=== PATIENT | female | born 1945 | race Asian ===

== ENCOUNTER → 2025-01-17 | Outpatient (CLI) | payer MEDICARE, BC, SELFPAY ==
[2025-01-24 06:29] LABS: Helicobacter pylori Ag, Stool* NOT DETECTED (NOT DETECTED)
== END | disposition home or self-care (01) ==
LOC: SLDO 11:27
PROVIDERS: PCP Internal Medicine; Referring Provider Internal Medicine; Visit Provider Internal Medicine
DX: K30 Functional dyspepsia (principal)
CPT/HCPCS: 87338

== ENCOUNTER → 2025-02-20 | Outpatient (CLI) | payer MEDICARE, BC, SELFPAY ==
--- NOTE | 2025-02-20 | XR_ITS ---
Examination: Foot, right, 3 views Technique: AP, oblique, lateral views foot, 3 views Date and time of exam: February 20, 2025 1204 hours INDICATIONS: Patient fell 2 days ago with injury to the foot, foot pain. FINDINGS: Severe osteopenia Intra-articular fracture off the base of the proximal phalanx first digit, the 4 mm fracture fragment does not show significant displacement Also 3 mm fracture intra-articular off the base of the proximal phalanx fourth digit and 4 mm intra-articular fracture off the base of the second digit proximal phalanx without displacement No dislocation IMPRESSION: Fractures off the bases of the first second and fourth proximal phalanges
--- NOTE | 2025-02-20 | XR_ITS ---
EXAMINATION: Ankle, right 3 views . Technique: Ankle AP, oblique, lateral 3 views Date and time of exam: February 20, 2025 1204 hours INDICATIONS: Patient fell 2 days ago with injury to the ankle, ankle pain. FINDINGS: Prominent osteopenia No acute ankle fracture. No dislocation IMPRESSION: No acute ankle fracture
== END | disposition home or self-care (01) ==
PROVIDERS: PCP Internal Medicine; Referring Provider Internal Medicine; Visit Provider Internal Medicine
DX: S99.911A Unspecified injury of right ankle, initial encounter (principal); S92.411A Displaced fracture of proximal phalanx of right great toe, initial encounter for closed fracture; S92.511A Displaced fracture of proximal phalanx of right lesser toe(s), initial encounter for closed fracture; W19.XXXA Unspecified fall, initial encounter
CPT/HCPCS: 73610; 73630